=== PATIENT | female | born 1965 | race Caucasian/White ===

== ENCOUNTER 2018-01-12 07:35 | Outpatient (CLI) | payer MEDICARE ==
--- NOTE | 2018-01-12 14:27 | MRI ---
MRI BRAIN NONCONTRAST: HISTORY: A 52-year-old female with R41.89, episode of altered condition; R46.89, episode of behavior change ; R25.1, episode of shaking. FINDINGS: The ventricles are normal in size and configuration. There is no major intraaxial signal abnormality , restricted diffusion, midline shift, or any other mass effect, recent intraaxial hemorrhage, or ext raaxial fluid collection. Coronal sequences were obtained through the brain. The mesial temporal st ructures, including the hippocampi, are bilaterally symmetrical, with no obvious signal abnormality. No obvious recent or remote intraaxial hemorrhage identified. IMPRESSION: Normal. jnr POS: JOSS
== END 2018-01-12 07:36 | disposition home or self-care (01) ==
LOC: EEG 07:35
PROVIDERS: ATTEND Student in an Organized Health Care Education/Training Program
DX: R41.89 Other symptoms and signs involving cognitive functions and awareness (principal); R46.89 Other symptoms and signs involving appearance and behavior; R25.1 Tremor, unspecified
CPT/HCPCS: 70551; 95822

== ENCOUNTER 2020-08-22 10:20 | Observation (INO) | payer MEDICARE ==
--- NOTE | 2020-08-22 11:02 | CT ---
Head CT without contrast 08/22/2020: COMPARISON: MRI Brain 01/12/2018 HISTORY: Traumatic brain injury, left facial droop TECHNIQUE: Axial CT imaging at 5 mm intervals from vertex through skull base without contrast FINDINGS: The imaged paranasal sinuses and mastoid air cells are well-aerated. No displaced calvarial fracture, intracranial hemorrhage, midline shift, or mass effect. IMPRESSION: No acute findings.
[2020-08-22 11:05] LABS: #Eosinphils 0.4 thou/uL (0.0-0.7); #Monocytes 0.5 thou/uL (0.11-0.59); #Neutrophils 3.2 thou/uL (1.40-6.50); %Basophils 0.4 % (0.0-1.0); %Lymphocytes 42.8 % (21.0-51.0); %Monocytes 6.5 % (0.0-10.0); %Neutrophils 45.2 % (42.0-75.0); Hemoglobin 14.8 g/dL (12.0-16.0); Mean Corpuscular HGB CONC 34.2 g/dL (32.0-36.0); Mean Corpuscular Hemoglobin 31.2 pg (27.0-31.0); Mean Platelet Volume 6.5 fL (7.4-10.4); Platelet Count 292 thou/uL (130-400); RBC Distribution Width 12.3 % (11.5-14.5); Red Blood Cell (RBC) Count 4.76 mill/uL (4.20-5.40); White Blood Cell (WBC) Count 7.1 thou/uL (4.8-10.8)
--- NOTE | 2020-08-22 11:08 | RAD ---
RADIOGRAPH CHEST 1 VIEW: DATE: 08/22/2020 HISTORY: 55-year-old female with chest pain FINDINGS: There are no airspace densities, pulmonary edema, pneumothorax, or cardiomegaly. The lateral costophr enic angles are sharp. IMPRESSION: No acute cardiopulmonary findings.
[2020-08-22 12:04] LABS: ALT (SGPT) 41 U/L (8-55); AST (SGOT) 27 U/L (5-34); Albumin 4.3 g/dL (3.5-5.0); Alkaline Phosphatase 95 U/L (40-110); Anion Gap 15 mmol/L (10-20); BUN (Urea Nitrogen) 14 mg/dL (9.8-20.1); Bilirubin, Total 0.2 mg/dL (0.2-1.2); Calc. Creatinine Clearance 0 mL/min (70-130); Calcium 9.6 mg/dL (7.8-10.44); Carbon Dioxide 31 mmol/L (22-29); Chloride 97 mmol/L (98-107); Estimated GFR-MDRD 78; Globulin 2.5 g/dL (2.4-3.5); Glucose 115 mg/dL (70-105); Protein, Total 6.8 g/dL (6.0-8.3); Sodium 139 mmol/L (136-145)
[2020-08-22] MEDS ORDERED: Aspirin Chewable 81 MG TAB ONE (13:04)
--- NOTE | 2020-08-22 15:20 | PDOC.HHP ---
Hospitalist HPI - History of Present Illness Left sided facial numbness History of Present Illness: Patient presents with complaints of left facial numbness and drooping that occurred yesterday at 3pm. States it resolved eventually and today she called her primary care physician and was prompted by the nurse to come in to the ED. On arrival the patient was asymptomatic. Reports having occasional intermittent numbness to her tongue and feeling like it causes her difficulty speaking. No slurred speech that she can tell but the nurse noted slurring of her words while she spoke to her on the phone which was the reason she advised her to seek medical attention. Patient reports having work-up for a seizure vs. "mini" stroke. States she had an EEG done which was normal. This was done 3 years ago in [place] after she had an episode of "blank stare" for a brief period of time while talking to her friend. She has had occasional episodes of symptoms similar as today but "wrote them off". ED COURSE: EKG done showing a NSR. No ST changes or T wave abnormalities. CT head unremarkable. Aspirin 324 mg PO x 1 given. PAST MEDICAL HISTORY: Hypothyroidism Hypertension Chronic knee pain Restless leg syndrome Chronic bronchitis Depression PAST SURGICAL HISTORY: Hysterectomy Neck surgery SOCIAL HISTORY: States she smokes on and off but hasnt for several months. Unable to state how much or for how long. No heavy alcohol consumption or drug use. FAMILY HISTORY: Noncontributory. ALLERGIES: Xanax Topiramate CURRENT MEDICATIONS: 1. Albuterol 2. Amitriptyline 3. Atorvastatin 4. Bupropion 5. Ergocalciferol 6. Estradiol 7. Gabapentin 8. Hydrochlorathiazide 9. Levothyroxine 10. Methocarbamol 11. Omeprazole 12. Oxcarbazepine 13. Miralax 14. Quetiapine 15. Ropinorole - Exam General Appearance: NAD, awake alert Eye: PERRL, anicteric sclera ENT: normocephalic atraumatic, no oropharyngeal lesions, moist mucosa Neck: supple, no lymphadenopathy Heart: RRR, no murmur, no gallops Respiratory: CTAB, no wheezes, no rales, normal chest expansion, no tachypnea Gastrointestinal: soft, non-tender, non-distended, normal bowel sounds, no guarding, no rigidity Extremities: no edema Skin: normal turgor, no lesions, no rashes Neurological: cranial nerve grossly intact, normal sensation to touch Neurological - other findings: no facial droop/weakness Musculoskeletal: normal tone Musculoskeletal - other findings: slight weakness in left arm, and right leg, inconsistent exam Psychiatric: normal affect, normal behavior, A&O x 3 Hospitalist Results - Labs Result Diagrams: 08/22/20 10:49 08/22/20 10:49 Lab results: WBC 7.1 thou/uL (4.8-10.8) 08/22/20 10:49 Hgb 14.8 g/dL (12.0-16.0) 08/22/20 10:49 Hct 43.3 % (36.0-47.0) 08/22/20 10:49 MCV 91.0 fL (78.0-98.0) 08/22/20 10:49 Plt Count 292 thou/uL (130-400) 08/22/20 10:49 Neutrophils % 45.2 % (42.0-75.0) 08/22/20 10:49 Sodium 139 mmol/L (136-145) 08/22/20 10:49 Potassium 4.0 mmol/L (3.5-5.1) 08/22/20 10:49 Chloride 97 mmol/L (98-107) L 08/22/20 10:49 Carbon Dioxide 31 mmol/L (22-29) H 08/22/20 10:49 BUN 14 mg/dL (9.8-20.1) 08/22/20 10:49 Creatinine 0.77 mg/dL (0.6-1.1) 08/22/20 10:49 Glucose 115 mg/dL (70-105) H 08/22/20 10:49 Calcium 9.6 mg/dL (7.8-10.44) 08/22/20 10:49 Total Bilirubin 0.2 mg/dL (0.2-1.2) 08/22/20 10:49 AST 27 U/L (5-34) 08/22/20 10:49 ALT 41 U/L (8-55) 08/22/20 10:49 Alkaline Phosphatase 95 U/L (40-110) 08/22/20 10:49 Troponin I 0.020 ng/mL (< 0.028) 08/22/20 10:49 Serum Total Protein 6.8 g/dL (6.0-8.3) 08/22/20 10:49 Albumin 4.3 g/dL (3.5-5.0) 08/22/20 10:49 Hospitalist H&P A/P - Problem (1) TIA (transient ischemic attack) Code(s): G45.9 - TRANSIENT CEREBRAL ISCHEMIC ATTACK, UNSPECIFIED Status: Acute (2) Hypertension Code(s): I10 - ESSENTIAL (PRIMARY) HYPERTENSION Status: Chronic (3) Hypothyroidism Code(s): E03.9 - HYPOTHYROIDISM, UNSPECIFIED Status: Chronic (4) Chronic knee pain Code(s): M25.569 - PAIN IN UNSPECIFIED KNEE; G89.29 - OTHER CHRONIC PAIN Status: Chronic (5) Depression Code(s): F32.9 - MAJOR DEPRESSIVE DISORDER, SINGLE EPISODE, UNSPECIFIED Status: Chronic (6) Chronic bronchitis Code(s): J42 - UNSPECIFIED CHRONIC BRONCHITIS Status: Chronic - Plan Plan: MRI brain in the AM Echo ordered. Carotid US. Neuro consult Neuro checks. Lipid panel with AM labs Resume home medications once verified. GI prophylaxis with Famotidine DVT Prophylaxis: Patient is ambulatory. Mechanical SCDs. CODE STATUS FULL
--- NOTE | 2020-08-22 16:22 | MRI ---
Brain MRI without contrast: 08/22/2020 COMPARISON: 01/12/2018 HISTORY: Traumatic brain injury, left facial droop TECHNIQUE: Multiplanar multisequence MR imaging of the brain obtained without contrast FINDINGS: The axial diffusion weighted imaging demonstrates no evidence for acute infarction gradient echo imaging demonstrates no evidence for intracranial hemorrhage. The regional bone marrow signal intensity appears grossly unremarkable on the T1-weighted imaging. Th e axial T2 sequence demonstrates grossly unremarkable arterial flow voids at the axial level of the skull base. The imaged paranasal sinuses/mastoid air cells demonstrate normal signal intensity. No midline shift or mass effect. No ventricular enlargement. IMPRESSION: Unremarkable noncontrast enhanced brain MRI.
[2020-08-22] MEDS ORDERED: Gabapentin 300 MG CAP PO SCH (21:30)
[2020-08-22] MEDS: Atorvastatin Calcium 40 MG TAB PO SCH (21:42)
[2020-08-22] MEDS: Famotidine 20 MG TAB PO SCH (21:42)
[2020-08-23] MEDS: Acetaminophen 325 MG TAB PO PRN ×2 (01:47→06:32)
[2020-08-23] MEDS ORDERED: Ibuprofen 600 MG TAB PO SCH (03:00)
[2020-08-23 03:24] VITALS: BMI 46.7
[2020-08-23 05:53] LABS: #Basophils 0.1 thou/uL (0.0-0.2); #Eosinphils 0.4 thou/uL (0.0-0.7); #Lymphocytes 2.7 thou/uL (1.20-3.40); #Monocytes 0.6 thou/uL (0.11-0.59); #Neutrophils 3.8 thou/uL (1.40-6.50); %Basophils 0.8 % (0.0-1.0); %Lymphocytes 35.4 % (21.0-51.0); %Monocytes 7.5 % (0.0-10.0); %Neutrophils 50.4 % (42.0-75.0); Hemoglobin 14.8 g/dL (12.0-16.0); Mean Corpuscular HGB CONC 34.1 g/dL (32.0-36.0); Mean Corpuscular Hemoglobin 31.5 pg (27.0-31.0); Mean Corpuscular Volume 92.6 fL (78.0-98.0); Mean Platelet Volume 6.7 fL (7.4-10.4); Platelet Count 256 thou/uL (130-400); RBC Distribution Width 12.3 % (11.5-14.5); Red Blood Cell (RBC) Count 4.71 mill/uL (4.20-5.40); White Blood Cell (WBC) Count 7.5 thou/uL (4.8-10.8)
[2020-08-23 06:14] LABS: Anion Gap 16 mmol/L (10-20); BUN (Urea Nitrogen) 15 mg/dL (9.8-20.1); Calc. Creatinine Clearance 154 mL/min (70-130); Calcium 9.2 mg/dL (7.8-10.44); Carbon Dioxide 25 mmol/L (22-29); Cardiac Risk 3.7 (Less than 4.5); Chloride 96 mmol/L (98-107); Cholesterol 171 mg/dl (< 200 Desired); Estimated GFR-MDRD 78; Glucose 120 mg/dL (70-105); HDL Cholesterol 46 mg/dL (>60 Neg Risk); LDL Cholesterol, Calculated 86 mg/dL; Potassium 3.8 mmol/L (3.5-5.1); Sodium 133 mmol/L (136-145); Triglycerides 193 mg/dL (Less than 150)
--- NOTE | 2020-08-23 07:53 | ULT ---
BILATERAL CAROTID DUPLEX ULTRASOUND: HISTORY: History of TIAs TECHNIQUE: Grayscale, color-flow and spectral Doppler ultrasound imaging of the extracranial carotid artery syst ems and vertebral arteries was performed bilaterally. FINDINGS: There is mild atherosclerotic plaque involving the carotid bulbs bilaterally. The peak systolic velocity in the right ICA measures 71.1 cm/s. The peak systolic velocity in the ri ght CCA measures 79.8 cm/s. The peak systolic velocity in the left ICA measures 89.9 cm/s. The peak systolic velocity in the l eft CCA measures 102.5 cm/s. The right IC/CC ratio is0.87. The left IC/CC ratio is 0.88. Vertebral flow: antegrade, bilaterally. . IMPRESSION: No hemodynamically significant stenosis of Both ICAs.
[2020-08-23] MEDS ORDERED: Gabapentin 300 MG CAP PO SCH (09:00)
[2020-08-23] MEDS ORDERED: FLU VACC QS2020-21(6MOS UP)/PF 60 MCG/0.5 ML SYRINGE IM ONE (09:00)
[2020-08-23] MEDS: Enoxaparin Sodium 40 MG/0.4 ML SYRINGE SC SCH (09:18)
[2020-08-23] MEDS: Famotidine 20 MG TAB PO SCH ×2 (09:28→20:42)
[2020-08-23] MEDS: Aspirin 81 mg Enteric Coated Tablet PO SCH (09:28)
[2020-08-23] MEDS: Gabapentin 300 MG CAP PO SCH ×3 (09:28→20:40)
--- NOTE | 2020-08-23 13:56 | CON ---
NEUROLOGY CONSULTATION DATE OF CONSULTATION: 08/23/2020 REASON FOR CONSULTATION: Left-sided facial numbness. HISTORY OF PRESENT ILLNESS: Ms. Quintanilla is a 55-year-old female with history significant for hypothyroidism, hypertension, chronic knee pain, restless legs syndrome, chronic bronchitis, and depression, presented to the emergency room with left-sided facial numbness and left facial droop, which started on 08/21/2020 around 3:00 p.m. Per patient, it resolved eventually, but her primary care physician who advised her to come to the emergency room for further evaluation. On arrival to the emergency room, the patient reported intermittent numbness of her tongue and difficulty speaking, but no slurred speech and the facial droop was resolved. There was a concern about TIA, so she was admitted for further evaluation. In the emergency room, head CT was done, which was negative for acute intracranial pathology. She was given aspirin 324 mg. EKG was done, which showed normal sinus rhythm, admitted for further evaluation. The patient denies nausea, vomiting, headache, chest pain, abdominal pain, focal weakness, focal paresthesias, vertigo, blurred vision, double vision, dizziness, or abnormal involuntary movements associated with the episode. Per the patient, she had occasional episodes of similar symptoms, but she never paid attention to it. REVIEW OF SYSTEMS: All systems reviewed and were negative except pertinent positives and negatives mentioned in the HPI. ALLERGIES: XANAX (ALPRAZOLAM), TOPIRAMATE. PAST MEDICAL HISTORY: Hypothyroidism, hypertension, chronic knee pain, restless legs syndrome, chronic bronchitis, depression. PAST SURGICAL HISTORY: Hysterectomy, neck surgery. SOCIAL HISTORY: The patient does smoke. No history of heavy alcohol abuse or illegal drug abuse. FAMILY HISTORY: No history of stroke. CURRENT MEDICATIONS: 1. Albuterol. 2. Amitriptyline. 3. Atorvastatin. 4. Bupropion. 5. Ergocalciferol. 6. Estradiol. 7. Gabapentin. 8. Hydrochlorothiazide. 9. Levothyroxine. 10. Methocarbamol. 11. Omeprazole. 12. Oxcarbazepine. 13. MiraLAX. 14. Quetiapine. 15. Ropinirole. PHYSICAL EXAMINATION: VITAL SIGNS: Blood pressure 182/91, 88, respiratory rate 18. General Appearance: NAD, awake alert Eye: PERRL, anicteric sclera ENT: normocephalic atraumatic, no oropharyngeal lesions, moist mucosa Neck: supple, no lymphadenopathy Heart: RRR, no murmur, no gallops Respiratory: CTAB, no wheezes, no rales, normal chest expansion, no tachypnea Gastrointestinal: soft, non-tender, non-distended, normal bowel sounds, no guarding, no rigidity Extremities: no edema Skin: normal turgor, no lesions, no rashes Neurological: Mental status, the patient is alert and oriented to person, place, and time. Speech is clear. Recent and remote memory, intact. Fund of knowledge is appropriate. Motor, muscle tone and bulk are normal. Strength 5/5 bilaterally. Sensory intact. Cerebellar, finger-nose testing intact. Cranial nerves 2 through 12 intact. Gait deferred due to the patient's safety reason. DATA REVIEWED: I reviewed the MRI of the brain, which was negative for acute intracranial pathology. Carotid Doppler did not show hemodynamically significant stenosis. EKG showed normal sinus rhythm. Echo completed, results pending. Lab results: WBC 7.1 thou/uL (4.8-10.8) 08/22/20 10:49 Hgb 14.8 g/dL (12.0-16.0) 08/22/20 10:49 Hct 43.3 % (36.0-47.0) 08/22/20 10:49 MCV 91.0 fL (78.0-98.0) 08/22/20 10:49 Plt Count 292 thou/uL (130-400) 08/22/20 10:49 Neutrophils % 45.2 % (42.0-75.0) 08/22/20 10:49 Sodium 139 mmol/L (136-145) 08/22/20 10:49 Potassium 4.0 mmol/L (3.5-5.1) 08/22/20 10:49 Chloride 97 mmol/L (98-107) L 08/22/20 10:49 Carbon Dioxide 31 mmol/L (22-29) H 08/22/20 10:49 BUN 14 mg/dL (9.8-20.1) 08/22/20 10:49 Creatinine 0.77 mg/dL (0.6-1.1) 08/22/20 10:49 Glucose 115 mg/dL (70-105) H 08/22/20 10:49 Calcium 9.6 mg/dL (7.8-10.44) 08/22/20 10:49 Total Bilirubin 0.2 mg/dL (0.2-1.2) 08/22/20 10:49 AST 27 U/L (5-34) 08/22/20 10:49 ALT 41 U/L (8-55) 08/22/20 10:49 Alkaline Phosphatase 95 U/L (40-110) 08/22/20 10:49 Troponin I 0.020 ng/mL (< 0.028) 08/22/20 10:49 Serum Total Protein 6.8 g/dL (6.0-8.3) 08/22/20 10:49 Albumin 4.3 g/dL (3.5-5.0) 08/22/20 10:49 ASSESSMENT AND PLAN: (1) TIA (transient ischemic attack) Code(s): G45.9 - TRANSIENT CEREBRAL ISCHEMIC ATTACK, UNSPECIFIED Status: Acute (2) Hypertension Code(s): I10 - ESSENTIAL (PRIMARY) HYPERTENSION Status: Chronic (3) Hypothyroidism Code(s): E03.9 - HYPOTHYROIDISM, UNSPECIFIED Status: Chronic (4) Chronic knee pain Code(s): M25.569 - PAIN IN UNSPECIFIED KNEE; G89.29 - OTHER CHRONIC PAIN Status: Chronic (5) Depression Code(s): F32.9 - MAJOR DEPRESSIVE DISORDER, SINGLE EPISODE, UNSPECIFIED Status: Chronic (6) Chronic bronchitis Code(s): J42 - UNSPECIFIED CHRONIC BRONCHITIS Status: Chronic Ms. Shanique Quintanilla is a 55-year-old female with medical history significant for hypertension, hyperlipidemia, hypothyroidism, and depression, presented with an episode of left facial numbness with left facial droop, which resolved. Most likely transient ischemic attack. MRI of the brain reviewed, which was negative for acute intracranial pathology. Carotid Doppler did not reveal hemodynamically significant stenosis. 2D echo completed, results pending. Neuro checks every 4 hours. Permissive control of blood pressure at this time. Strict control of blood glucose. Continue aspirin and high-intensity statin for secondary stroke prevention. Continue home medications. Continue medical management per primary team. PT/OT/Speech. We will continue. Deep venous thrombosis prophylaxis. We will continue to follow. Thank you for the consult. Plan discussed in detail with the patient and the nursing staff. Job ID: [id number] [facility]
[2020-08-23 15:15] LABS: SARS-CoV-2 MS2 Positive; SARS-CoV-2 N Gene Negative; SARS-CoV-2 S Gene Negative; SARS-CoV-2 by NAA Not Detected (NotDetected); SARS-CoV-2 orf1ab Negative
[2020-08-23] MEDS ORDERED: PROVENTIL INHALER 6.7 G (200 INHALATIONS) INH PRN (15:55)
--- NOTE | 2020-08-23 16:00 | PDOC.NEUPN ---
- Subjective Encounter Date: 08/23/20 - Objective Vital Signs & Weight: Vital Signs (12 hours) Temp Pulse Pulse Pulse Resp BP BP 08/23/20 15:25 98.0 F 98 16 08/23/20 11:55 97.7 F 75 16 08/23/20 11:11 82 88 157/91 H 182/91 H 08/23/20 08:00 97.9 F 75 16 08/23/20 07:56 80 163/96 H 180/101 H 08/23/20 04:00 97.5 F L 83 18 BP Pulse Ox 08/23/20 15:25 181/103 H 95 08/23/20 11:55 182/91 H 97 08/23/20 11:11 08/23/20 08:00 171/97 H 96 08/23/20 07:56 08/23/20 04:00 139/91 H 94 L Weight Weight 263 lb 12.8 oz I&O: 08/22/20 08/23/20 08/24/20 06:59 06:59 06:59 Intake Total 711 960 Balance 711 960 Result Diagrams: 08/23/20 05:11 08/23/20 05:11 Radiology Reviewed by me: Yes EKG Reviewed by me: Yes ROS - Review of Systems ROS unobtainable: due to mental status (due to deafness unable to cmplete ROS) - Medication Medications: Active Medications Generic Name Dose Route Start Last Admin Trade Name Freq PRN Reason Stop Dose Admin Acetaminophen 650 mg 08/23/20 01:26 08/23/20 06:32 Acetaminophen 325 Mg Tab PO 650 mg Q6H PRN Administration Fever/Mild Pain Aspirin 81 mg 08/23/20 09:00 08/23/20 09:28 Aspirin 81 Mg Enteric Coated Tablet PO 81 mg DAILY SIMBA Administration Atorvastatin Calcium 80 mg 08/22/20 21:00 08/22/20 21:42 Atorvastatin Calcium 40 Mg Tab PO 80 mg HS SIMBA Administration Enoxaparin Sodium 40 mg 08/23/20 09:00 08/23/20 09:18 Enoxaparin Sodium 40 Mg/0.4 Ml Syringe SC 40 mg 0900 SIMBA Administration Famotidine 20 mg 08/22/20 21:00 08/23/20 09:28 Famotidine 20 Mg Tab PO 20 mg BID SIMBA Administration Gabapentin 600 mg 08/23/20 09:00 08/23/20 15:41 Gabapentin 300 Mg Cap PO 600 mg TID SIMBA Administration - Exam Eye: PERRL ENT: normocephalic atraumatic Neck: supple Respiratory: CTAB Cardiovascular: RRR Gastrointestinal: soft Extremities: no cyanosis Skin: normal turgor Neurological: vision deficit Musculoskeletal: normal tone, normal strength, no muscle wasting PSYCH: normal affect, normal behavior Results - Labs Result Diagrams: 08/23/20 05:11 08/23/20 05:11 Lab results: WBC 7.5 thou/uL (4.8-10.8) 08/23/20 05:11 Hgb 14.8 g/dL (12.0-16.0) 08/23/20 05:11 Hct 43.6 % (36.0-47.0) 08/23/20 05:11 MCV 92.6 fL (78.0-98.0) 08/23/20 05:11 Plt Count 256 thou/uL (130-400) 08/23/20 05:11 Neutrophils % 50.4 % (42.0-75.0) 08/23/20 05:11 Sodium 133 mmol/L (136-145) L 08/23/20 05:11 Potassium 3.8 mmol/L (3.5-5.1) 08/23/20 05:11 Chloride 96 mmol/L (98-107) L 08/23/20 05:11 Carbon Dioxide 25 mmol/L (22-29) 08/23/20 05:11 BUN 15 mg/dL (9.8-20.1) 08/23/20 05:11 Creatinine 0.77 mg/dL (0.6-1.1) 08/23/20 05:11 Glucose 120 mg/dL (70-105) H 08/23/20 05:11 Calcium 9.2 mg/dL (7.8-10.44) 08/23/20 05:11 Total Bilirubin 0.2 mg/dL (0.2-1.2) 08/22/20 10:49 AST 27 U/L (5-34) 08/22/20 10:49 ALT 41 U/L (8-55) 08/22/20 10:49 Alkaline Phosphatase 95 U/L (40-110) 08/22/20 10:49 Troponin I 0.020 ng/mL (< 0.028) 08/22/20 10:49 Serum Total Protein 6.8 g/dL (6.0-8.3) 08/22/20 10:49 Albumin 4.3 g/dL (3.5-5.0) 08/22/20 10:49 - Radiology Interpretation MRI - head Additional Comment: No acute intracranial pathology. PN A/P (1) Eye hemorrhage Code(s): H57.89 - OTHER SPECIFIED DISORDERS OF EYE AND ADNEXA Status: Acute (2) TIA (transient ischemic attack) Code(s): G45.9 - TRANSIENT CEREBRAL ISCHEMIC ATTACK, UNSPECIFIED Status: Acute (3) Chronic bronchitis Code(s): J42 - UNSPECIFIED CHRONIC BRONCHITIS Status: Chronic (4) Chronic knee pain Code(s): M25.569 - PAIN IN UNSPECIFIED KNEE; G89.29 - OTHER CHRONIC PAIN Status: Chronic (5) Depression Code(s): F32.9 - MAJOR DEPRESSIVE DISORDER, SINGLE EPISODE, UNSPECIFIED Status: Chronic (6) Hypertension Code(s): I10 - ESSENTIAL (PRIMARY) HYPERTENSION Status: Chronic (7) Hypothyroidism Code(s): E03.9 - HYPOTHYROIDISM, UNSPECIFIED Status: Chronic - Plan Daily Plan: PT/OT, speech therapy, DVT proph w/SCDs is a 35 year old female with history significant for deafness, ESRD on hemodialysis , hemorrhage in the left eye followed by bench lathe operator in [place] presented with an episode of loss of vision . Vision improved since admission MRI brain did not reveal acute intracranial pathology. Carotid dopplers did not reveal hemodynamically significant stenosis. Neurochecks every 4 hours. Need ophthalmology input. PT/OT.Speech. Continue home medications Continue medical management per primary team and nephrology. Plan discussed with the nursing staff.
[2020-08-23] MEDS ORDERED: tiZANidine HCl 4 MG TAB PO PRN (16:13)
[2020-08-23] MEDS ORDERED: Meloxicam 15 MG TAB PO PRN (16:14)
--- NOTE | 2020-08-23 19:09 | PDOC.HOSPP ---
- Subjective Encounter Date: 08/23/20 Encounter Time: 10:00 Subjective: Patient reports she is feeling significantly better and is without any complaints. States her vision looks much clearer than it has been in a while. She noted a week back that she needed to zoom in on her ipad and phone but now notices improvement. Denies any headache. No issues with her speech or tingling in her tongue. Tolerating PO intake. No issues overnight. - Objective Vital Signs & Weight: Vital Signs (12 hours) Temp Pulse Pulse Pulse Resp BP BP 08/23/20 15:25 98.0 F 98 16 08/23/20 11:55 97.7 F 75 16 08/23/20 11:11 82 88 157/91 H 182/91 H 08/23/20 08:00 97.9 F 75 16 08/23/20 07:56 80 163/96 H 180/101 H BP Pulse Ox 08/23/20 15:25 181/103 H 95 08/23/20 11:55 182/91 H 97 08/23/20 11:11 08/23/20 08:00 171/97 H 96 08/23/20 07:56 Weight Weight 263 lb 12.8 oz I&O: 08/22/20 08/23/20 08/24/20 06:59 06:59 06:59 Intake Total 711 960 Balance 711 960 Result Diagrams: 08/23/20 05:11 08/23/20 05:11 Hospitalist ROS - Review of Systems Constitutional: denies: fever, chills, sweats, weakness, malaise, other Eyes: denies: pain, vision change, conjunctivae inflammation, eyelid inflammation, redness, other ENT: denies: ear pain, ear discharge, nose pain, nose discharge, nose congestion, mouth pain, mouth swelling, throat pain, throat swelling, other Respiratory: denies: cough, dry, shortness of breath, hemoptysis, SOB with excertion, pleuritic pain, sputum, wheezing, other Cardiovascular: denies: chest pain, palpitations, orthopnea, paroxysmal noc. dyspnea, edema, light headedness, other Gastrointestinal: denies: nausea, vomiting, abdominal pain, diarrhea, constipation, melena, hematochezia, other Genitourinary: denies: dysuria, frequency, incontinence, hematuria, retention, other Musculoskeletal: reports: other (chronic knee pain). denies: neck pain, shoulder pain, arm pain, back pain, hand pain, leg pain, foot pain Skin: denies: rash, lesions, maksim, bruising, other Neurological: denies: weakness, numbness, incoordination, change in speech, confusion, seizures, other - Medication Medications: Active Medications Generic Name Dose Route Start Last Admin Trade Name Freq PRN Reason Stop Dose Admin Acetaminophen 650 mg 08/23/20 01:26 08/23/20 06:32 Acetaminophen 325 Mg Tab PO 650 mg Q6H PRN Administration Fever/Mild Pain Aspirin 81 mg 08/23/20 09:00 08/23/20 09:28 Aspirin 81 Mg Enteric Coated Tablet PO 81 mg DAILY SIMBA Administration Atorvastatin Calcium 80 mg 08/22/20 21:00 08/22/20 21:42 Atorvastatin Calcium 40 Mg Tab PO 80 mg HS SIMBA Administration Enoxaparin Sodium 40 mg 08/23/20 09:00 08/23/20 09:18 Enoxaparin Sodium 40 Mg/0.4 Ml Syringe SC 40 mg 0900 SIMBA Administration Famotidine 20 mg 08/22/20 21:00 08/23/20 09:28 Famotidine 20 Mg Tab PO 20 mg BID SIMBA Administration Gabapentin 600 mg 08/23/20 09:00 08/23/20 15:41 Gabapentin 300 Mg Cap PO 600 mg TID SIMBA Administration - Exam General Appearance: NAD, awake alert Eye: PERRL, anicteric sclera ENT: normocephalic atraumatic, no oropharyngeal lesions Neck: supple, no lymphadenopathy Heart: RRR, normal peripheral pulses Respiratory: CTAB, no wheezes, no rales, no ronchi, normal chest expansion Gastrointestinal: soft, non-tender, non-distended, normal bowel sounds Extremities: no edema Skin: normal turgor, no rashes Neurological: cranial nerve grossly intact, normal sensation to touch Musculoskeletal: normal tone, normal strength, no muscle wasting Psychiatric: normal affect, normal behavior, A&O x 3 Hosp A/P (1) TIA (transient ischemic attack) Code(s): G45.9 - TRANSIENT CEREBRAL ISCHEMIC ATTACK, UNSPECIFIED Status: Acute Plan: MRI brain and carotid US normal. Echo pending. Seen by Neuro who advised to allow for permission hypertension for now. Continue ASA and Statin. (2) Hypertension Code(s): I10 - ESSENTIAL (PRIMARY) HYPERTENSION Status: Chronic Plan: Monitor BP. (3) Hypothyroidism Code(s): E03.9 - HYPOTHYROIDISM, UNSPECIFIED Status: Chronic Plan: Continue home medications. (4) Chronic knee pain Code(s): M25.569 - PAIN IN UNSPECIFIED KNEE; G89.29 - OTHER CHRONIC PAIN Status: Chronic (5) Depression Code(s): F32.9 - MAJOR DEPRESSIVE DISORDER, SINGLE EPISODE, UNSPECIFIED Status: Chronic Plan: Continue home medications. (6) Chronic bronchitis Code(s): J42 - UNSPECIFIED CHRONIC BRONCHITIS Status: Chronic Plan: Inhalers restarted. - Plan Possible discharge pending echo results and neuro clearance. Discussed with attending who agrees with plan as above.
[2020-08-23] MEDS: OXcarbazepine 300 MG TAB PO SCH (20:41)
[2020-08-23] MEDS: Atorvastatin Calcium 40 MG TAB PO SCH (20:41)
[2020-08-23] MEDS: Bupropion 150 MG SR TAB PO SCH (20:42)
[2020-08-23] MEDS ORDERED: Methocarbamol 500 MG TAB PO SCH (21:00)
[2020-08-23] MEDS ORDERED: Amitriptyline HCl 25 MG TAB PO SCH (21:00)
[2020-08-23] MEDS ORDERED: HYDROcodone/Acetaminophen 5/325 mg Tablet PO SCH (23:00)
[2020-08-24 04:37] LABS: #Basophils 0.1 thou/uL (0.0-0.2); #Eosinphils 0.3 thou/uL (0.0-0.7); #Lymphocytes 2.3 thou/uL (1.20-3.40); #Monocytes 0.6 thou/uL (0.11-0.59); #Neutrophils 4.6 thou/uL (1.40-6.50); %Basophils 0.9 % (0.0-1.0); %Eosinophils 3.9 % (0.0-10.0); %Lymphocytes 29.3 % (21.0-51.0); %Monocytes 8.1 % (0.0-10.0); %Neutrophils 57.8 % (42.0-75.0); Hemoglobin 14.2 g/dL (12.0-16.0); Mean Corpuscular HGB CONC 34.1 g/dL (32.0-36.0); Mean Corpuscular Hemoglobin 30.9 pg (27.0-31.0); Mean Corpuscular Volume 90.7 fL (78.0-98.0); Mean Platelet Volume 6.7 fL (7.4-10.4); Platelet Count 236 thou/uL (130-400); RBC Distribution Width 12.1 % (11.5-14.5); Red Blood Cell (RBC) Count 4.59 mill/uL (4.20-5.40); White Blood Cell (WBC) Count 7.9 thou/uL (4.8-10.8)
[2020-08-24 04:57] LABS: Anion Gap 15 mmol/L (10-20); BUN (Urea Nitrogen) 15 mg/dL (9.8-20.1); Calc. Creatinine Clearance 152 mL/min (70-130); Calcium 8.9 mg/dL (7.8-10.44); Carbon Dioxide 28 mmol/L (22-29); Chloride 99 mmol/L (98-107); Estimated GFR-MDRD 76; Glucose 118 mg/dL (70-105); Potassium 3.6 mmol/L (3.5-5.1); Sodium 138 mmol/L (136-145)
[2020-08-24] MEDS ORDERED: Levothyroxine Sodium 50 MCG TAB PO SCH (06:00)
[2020-08-24 08:15] VITALS: BP 138/90; TEMP 98.3
--- NOTE | 2020-08-24 08:39 | CT ---
PRELIMINARY REPORT/[facility]/EMERGENCY AFTER HOURS PROCEDURE EXAM: CT Head Without Intravenous Contrast. CLINICAL HISTORY: F55, FALL, ON BLOOD THINNERS, HIT HEAD ON WALL. PATIENT DOES NOT REMEMBER FALLING. TECHNIQUE: Axial computed tomography images of the head/brain without intravenous contrast. COMPARISON: CT\SR - CT BRAIN WO CON - 08/22/2020 10:54 AM COMMUNITY RELATIONS DIRECTOR FINDINGS: BRAIN: No acute intraparenchymal hemorrhage. No mass lesion. No CT evidence for acute territorial infarct. N o midline shift or extra-axial collection. VENTRICLES: No hydrocephalus. ORBITS: The orbits are unremarkable. SINUSES AND MASTOIDS: The paranasal sinuses and mastoid air cells are clear. SOFT TISSUES: No significant facial or scalp soft tissue swelling evident. No radiopaque foreign body is seen. BONES: No acute skull fracture. IMPRESSION: No acute intracranial abnormality. ELECTRONICALLY SIGNED BY: Yasir Castro DO Aug 24, 2020 1:23:45 AM COMMUNITY RELATIONS DIRECTOR This report is intended for review by the ordering physician only, in accordance of law. If you recei ve this report in error, please call [facility] at [phone]. FINAL REPORT Final report by Dr. Casper Emergency after-hours study CT BRAIN NONCONTRAST: DATE: 08/24/2020 1:13 AM HISTORY: 55-year-old female on anticoagulation medication status post acute head trauma from fall FINDINGS: There is no evidence of acute intra-axial or extra-axial hemorrhage. There is no midline shift or any other mass effect. There is no extra-axial fluid collection. There is no evidence of obstructive hydrocephalus. Calvarium is intact. Agree with preliminary report by [facility]. IMPRESSION: No acute intracranial findings. Transcribed Date/Time: 08/24/2020 8:45 AM
[2020-08-24] MEDS ORDERED: Polyethylene Glycol 3350 17 GM Packet PO SCH (09:00)
[2020-08-24] MEDS ORDERED: ROPINIROLE HCL 4 MG PO SCH (09:00)
[2020-08-24] MEDS ORDERED: Estradiol 1 MG TAB PO SCH (09:00)
[2020-08-24] MEDS ORDERED: Atorvastatin Calcium 40 MG TAB PO SCH (09:00)
[2020-08-24] MEDS: Gabapentin 300 MG CAP PO SCH (09:38)
[2020-08-24] MEDS: Famotidine 20 MG TAB PO SCH (09:38)
[2020-08-24] MEDS: Enoxaparin Sodium 40 MG/0.4 ML SYRINGE SC SCH (09:38)
[2020-08-24] MEDS: Bupropion 150 MG SR TAB PO SCH (09:38)
[2020-08-24] MEDS: Aspirin 81 mg Enteric Coated Tablet PO SCH (09:38)
[2020-08-24] MEDS: OXcarbazepine 300 MG TAB PO SCH (09:52)
--- NOTE | 2020-08-24 11:21 | PDOC.DS.DS ---
Provider - Provider Date of Admission: 08/22/20 12:59 Date of Discharge: 08/24/20 Admitting Provider: Taylor Clinton MD Consultations: Neurology Primary Care Physician: Maisha Saavedra Course - Hospital Course Hospital Course: 55-year-old female who was admitted for left facial numbness and facial droop, In the emergency room patient had CT brain negative, EKG normal, patient was observed on stroke floor, MRI brain came back normal, carotid Doppler was normal, neurology evaluated this patient, Last night patient had unwitnessed fall and repeat CT brain was negative, patient was completely unremarkable. This morning patient is neurologically intact, patient will continue all her previous medication, patient has polypharmacy and there so I have discussed with the patient to make appointment with primary care physician for discussion about her medication Resuscitation Status: 08/22/20 15:05 Resuscitation Status Routine Co-Sign Provider: Resuscitation Status: FULL: Full Resuscitation - Labs Lab Results: 08/24/20 04:12 08/24/20 04:12 Abnormal Lab Results - Last 48 hrs 08/22/20 10:49: Chloride 97 L, Carbon Dioxide 31 H 08/23/20 05:11: Sodium 133 L, Chloride 96 L, Triglycerides 193 H 08/23/20 05:11: MCH 31.5 H, MPV 6.7 L, Monocytes # 0.6 H 08/24/20 04:12: MPV 6.7 L, Monocytes # 0.6 H - Diagnostic Interpretation CT scan - head Additional comments: No acute intracranial process MRI - head Additional comments: No acute stroke Chest x-ray Additional comments: No acute process Other Additional comments: Carotid Doppler no stenosis - Physical Exam Vitals: Vital Signs (12 hours) Temp Temp Pulse Pulse Pulse Pulse Resp 08/24/20 08:00 98.3 F 106 H 16 08/24/20 04:00 97.6 F 97 20 08/24/20 00:57 97.8 F 92 87 87 Resp Resp Resp BP BP BP BP 08/24/20 08:00 138/90 08/24/20 04:00 104/70 08/24/20 00:57 21 H 20 20 134/79 134/73 134/81 Pulse Ox 08/24/20 08:00 95 08/24/20 04:00 94 L 08/24/20 00:57 Weight Weight 263 lb 12.8 oz Physical Exam: The patient was seen and examined on the day of discharge. General patient is alert and oriented x3 Head normocephalic atraumatic Neck supple no JVD no meningeal signs of irritation Lungs clear to auscultation without any rhonchi rales Cardiac S1-S2 regular no murmur no gallop no rub Abdomen soft and benign Extremity no edema Neurologic nonfocal examination on examination Problem - Problem (1) TIA (transient ischemic attack) Code(s): G45.9 - TRANSIENT CEREBRAL ISCHEMIC ATTACK, UNSPECIFIED Status: Ruled-out Plan: CVA and TIA ruled out (2) Depression Code(s): F32.9 - MAJOR DEPRESSIVE DISORDER, SINGLE EPISODE, UNSPECIFIED Status: Chronic Qualifiers: Depression Type: major depressive disorder Major depression recurrence: recurrent Major depression episode severity: mild (3) Hypertension Code(s): I10 - ESSENTIAL (PRIMARY) HYPERTENSION Status: Chronic Qualifiers: Hypertension type: essential hypertension Qualified Code(s): I10 - Essential (primary) hypertension (4) Hypothyroidism Code(s): E03.9 - HYPOTHYROIDISM, UNSPECIFIED Status: Chronic Qualifiers: Hypothyroidism type: unspecified Qualified Code(s): E03.9 - Hypothyroidism, unspecified (5) Morbid obesity with BMI of 45.0-49.9, adult Code(s): E66.01 - MORBID (SEVERE) OBESITY DUE TO EXCESS CALORIES; Z68.42 - BODY MASS INDEX [BMI] 45.0-49.9, ADULT Status: Chronic Plan - Discharge Medications Home Medications: Medication Instructions Recorded Confirmed Type Gabapentin 600 mg PO TID 08/22/20 08/22/20 History Albuterol Sulfate [Proair 2 inh PO Q4HR PRN 08/23/20 08/23/20 History Digihaler] Amitriptyline HCl [Elavil] 50 mg PO HS 08/23/20 08/23/20 History Atorvastatin Calcium [Lipitor] 40 mg PO DAILY 08/23/20 08/23/20 History Ergocalciferol (Vitamin D2) 50,000 unit PO ASDIR 08/23/20 08/23/20 History [Vitamin D2] Estradiol [Estrace] 1 mg PO DAILY 08/23/20 08/23/20 History Hydrochlorothiazide 25 mg PO DAILY 08/23/20 08/23/20 History Levothyroxine Sodium [Levoxyl] 50 mcg PO QAM 08/23/20 08/23/20 History Meloxicam 15 mg PO DAILY PRN 08/23/20 08/23/20 History Methocarbamol 750 mg PO HS 08/23/20 08/23/20 History Methocarbamol [Robaxin] 500 mg PO BID 08/23/20 08/23/20 History Mupirocin 2% Ointment [Bactroban 1 applic TOP TID 08/23/20 08/23/20 History 2% Ointment] OXcarbazepine [Trileptal] 600 mg PO BID 08/23/20 08/23/20 History Omeprazole 20 mg PO QAM 08/23/20 08/23/20 History Polyethylene Glycol 3350 [Miralax] 17 gm PO DAILY 08/23/20 08/23/20 History QUEtiapine Fumarate [SEROquel] 300 mg PO HS 08/23/20 08/23/20 History buPROPion HCl [Zyban] 150 mg PO BID 08/23/20 08/23/20 History rOPINIRole HCl [Ropinirole ER] 4 mg PO DAILY 08/23/20 08/23/20 History tiZANidine HCl [Tizanidine HCl] 2 tab PO DAILY PRN 08/23/20 08/23/20 History Allergies: alprazolam [From Xanax] Allergy (Verified 08/22/20 20:59) per pt topiramate [From Topamax] Allergy (Verified 08/22/20 20:59) - Discharge Instructions Activity:: Activity as Tolerated Nourishment:: Heart Healthy Diet Therapies:: Not Applicable Equipment/Supplies:: Not Applicable IV Therapy:: Not Applicable - Follow up Plan Referrals: Maisha Saavedra [Primary Care Provider] - Disposition: HOME Quality - Care Measures CORE MEASURES:: N/A
--- NOTE | 2020-08-24 13:15 | EKG ---
Test Reason : Blood Pressure : / mmHG Vent. Rate : 085 BPM Atrial Rate : 085 BPM P-R Int : 164 ms QRS Dur : 100 ms QT Int : 382 ms P-R-T Axes : 017 -25 051 degrees QTc Int : 454 ms Normal sinus rhythm Possible Anterolateral infarct , age undetermined Abnormal ECG Confirmed by CALLI LEON DO ([id number]), website/blog editor TERESITA ADAMS ([id number]) on 08/24/2020 1:14:21 PM Referred By: Confirmed By:CALLI LEON DO
[2020-08-30] MEDS ORDERED: Ergocalciferol 1.25 MG(50,000 UNITS) CAP PO SCH (09:00)
== END 2020-08-24 13:51 | disposition home or self-care (01) ==
LOC: ERS 10:20 → ERHOLD 12:59 → 2SE 20:49
PROVIDERS: ADMIT Internal Medicine; ATTEND Internal Medicine
DX: R20.0 Anesthesia of skin (principal); R29.810 Facial weakness; E03.9 Hypothyroidism, unspecified; I10 Essential (primary) hypertension; G89.29 Other chronic pain; M25.569 Pain in unspecified knee; G25.81 Restless legs syndrome; J42 Unspecified chronic bronchitis; F32.9 Major depressive disorder, single episode, unspecified; F17.210 Nicotine dependence, cigarettes, uncomplicated; E66.01 Morbid (severe) obesity due to excess calories; Z68.42 Body mass index [BMI] 45.0-49.9, adult; Z23 Encounter for immunization; Z79.82 Long term (current) use of aspirin; Z79.899 Other long term (current) drug therapy; Z88.8 Allergy status to other drugs, medicaments and biological substances; Z20.828 Contact with and (suspected) exposure to other viral communicable diseases
CPT/HCPCS: 70450 ×2; 70551; 71045; 80048 ×2; 80053; 80061; 82962; 84443; 84484; 85025 ×3; 90662; 90732; 93005; 93306; 93880; 97116; 97139 ×3; 99285; G0008; G0009; U0003; 36415; 36416; 87635; 90471; 96372; G0378; J1650

== ENCOUNTER 2021-08-07 00:41 | Emergency (ER) | payer MEDICARE ==
[2021-08-07] MEDS ORDERED: Acetaminophen 500 MG TAB ONE (01:39)
== END 2021-08-07 02:16 | disposition home or self-care (01) ==
LOC: ERS 00:41
DX: S30.1XXA Contusion of abdominal wall, initial encounter (principal); M79.662 Pain in left lower leg; E03.9 Hypothyroidism, unspecified; I10 Essential (primary) hypertension; J42 Unspecified chronic bronchitis; Z87.891 Personal history of nicotine dependence; W19.XXXA Unspecified fall, initial encounter

== ENCOUNTER 2024-03-22 11:13 | Outpatient (CLI) | payer OTHER | END 2024-03-22 11:14 | disposition home or self-care (01) | PROVIDERS: ATTEND Family Medicine | DX: M51.36 Other intervertebral disc degeneration, lumbar region (principal); M47.816 Spondylosis without myelopathy or radiculopathy, lumbar region; G40.109 Localization-related (focal) (partial) symptomatic epilepsy and epileptic syndromes with simple partial seizures, not intractable, without status epilepticus; R29.6 Repeated falls; R29.898 Other symptoms and signs involving the musculoskeletal system ==